=== PATIENT | female | born 1960 | race Two or more races ===

== ENCOUNTER 2022-02-12 23:49 | Emergency (ER) | payer OTHER ==
[~2022-02-12] VITALS: Ht 154.9 cm; Wt 55.3 kg
[2022-02-13] MEDS ORDERED: ONDANSETRON HCL/PF 4 MG/2 ML VIAL IVP ONE (00:30)
[2022-02-13] MEDS ORDERED: DICYCLOMINE HCL INJ 20 MG/2 ML AMPUL IM ONE ×2 (00:30→00:46)
[2022-02-13] MEDS ORDERED: IV NS 0.9% 500 ML BAG IV ONE (00:30)
--- NOTE | 2022-02-13 00:34 | NUR ---
BIBPA FOR C/O 2 EPISODES OF VOMITING AT 1600 +NASUEA AND ABD CRAMPING. PT ENDORSES HUNGER DUE TO BEING UNABLE TO EAT. PT AWAKE AND ALERT X3 BREATHING EVEN AND UNLABORED. PLACED ON MONITOR AND V/S WNL.
[2022-02-13] MEDS ORDERED: ONDANSETRON HCL/PF 4 MG/2 ML VIAL ONE (00:46)
--- NOTE | 2022-02-13 00:56 | NUR ---
22G IV ESTABLISHED AT RF. SALINE LOCKED.
--- NOTE | 2022-02-13 01:02 | NUR ---
URINE COLLECTED AND SENT TO LAB
--- NOTE | 2022-02-13 01:32 | NUR ---
LAB AT BEDSIDE
[2022-02-13 02:11] LABS: BILIRUBIN,URINE NEGATIVE (NEGATIVE); COLOR,URINE YELLOW (YELLOW); LEUKOCYTE ESTERASE ,URINE MODERATE (NEGATIVE); NITRITE, URINE NEGATIVE (NEGATIVE); PROTEIN,URINE 30 mg/dl (NEGATIVE); UGLUCOSE >=1000 mg/dL (NEGATIVE); UROBILINOGEN,URINE 0.2 EU/dL (0.2)
[2022-02-13 02:11] LABS: BASOPHILS # (AUTO) 0.1 K/uL (0.0-0.2); BASOPHILS % (AUTO) 0.5 % (0.0-2.0); EOSINOPHILS % (AUTO) 3.6 % (0.0-6.0); HEMATOCRIT 29 % (33-45); HEMOGLOBIN 9.2 g/dL (11.5-14.8); LYMPHOCYTES % (AUTO) 18.5 % (20.0-44.0); MEAN CORPUSCULAR HGB CONC 32 g/dl (31.0-36.0); MEAN CORPUSCULAR VOLUME 86 fL (82-100); MONOCYTES % (AUTO) 9.3 % (2.0-12.0); NEUTROPHILS # (AUTO) 7.2 K/uL (1.8-8.9); NEUTROPHILS % (AUTO) 68.1 % (43.0-81.0); PLATELET COUNT (AUTO) 569 K/uL (150-450); RED BLOOD CELL COUNT(AUTO) 3.34 MIL/uL (4.0-5.2); WHITE BLOOD COUNT (AUTO) 10.6 K/uL (4.3-11.0)
[2022-02-13 02:18] LABS: CALCIUM, SERUM 8.3 mg/dL (8.5-10.1); CARBON DIOXIDE 26 mmol/L (21-32); CHLORIDE 104 mmol/L (98-107); CREATININE 0.7 mg/dL (0.6-1.3); GLUCOSE 78 mg/dL (74-106); POTASSIUM 3.5 mmol/L (3.5-5.1); SODIUM SERUM 138 mmol/L (136-145); UREA NITROGEN, BLOOD 17 mg/dL (7-18)
[2022-02-13 02:24] LABS: ALANINE AMINOTRANSFERASE 8 U/L (12-78); ALKALINE PHOSPHATASE 119 U/L (46-116); ASPARTATE AMINOTRANSFERASE 13 U/L (15-37); BILIRUBIN,DIRECT 0.1 mg/dL (0.0-0.2); BILIRUBIN,TOTAL 0.2 mg/dL (0.2-1.0); LIPASE 34 U/L (73-393); TOTAL PROTEIN, SERUM 6.4 g/dL (6.4-8.2)
[2022-02-13] MEDS ORDERED: CEFTRIAXONE 1GM BAG (ER ONLY) 1 GM/50 ML PIGGYBACK IV ONE (02:30)
--- NOTE | 2022-02-13 03:20 | NUR ---
[facility] PAGED
[2022-02-13] MEDS ORDERED: CEFTRIAXONE 1 G VIAL ONE (03:22)
--- NOTE | 2022-02-13 04:00 | NUR ---
LAB AT BEDSIDE FOR REPEAT TROPONIN
--- NOTE | 2022-02-13 04:44 | NUR ---
CALLED LAB FOR TROPONIN REDRAW
--- NOTE | 2022-02-13 04:49 | NUR ---
FOLLOWED UP WITH [facility]
--- NOTE | 2022-02-13 05:00 | NUR ---
[facility] AT BEDSIDE FOR REDRAW
--- NOTE | 2022-02-13 05:52 | NUR ---
PT SLEEPING COMOFRTABLY. REMAINS ON MONITOR AND V/S WNL.
[2022-02-13 07:12] LABS: BACTERIA,URINE Many /HPF (None Seen); WBC,URINE 51-80 /HPF (0-3)
[2022-02-13 07:13] LABS: SQUAMOUS EPITHELIAL CELL,UR Few /HPF (None Seen)
--- NOTE | 2022-02-13 09:00 | NUR ---
PT AWAKE AND VERBALLY RESPONSIVE, NOT IN ACUTE DISTRESS. NO COMPLAINT OF PAIN AT THIS TIME.
[2022-02-13] MEDS ORDERED: SUCR1ORA15 PO (09:15)
[2022-02-13] MEDS ORDERED: FERR325T23 PO (09:15)
[2022-02-13] MEDS ORDERED: PANT40TA49 PO (09:15)
[2022-02-13] MEDS ORDERED: CRAN3875 PO (09:15)
[2022-02-13] MEDS ORDERED: DAPA10TA PO (09:15)
[2022-02-13] MEDS ORDERED: REPA1TAB7 PO (09:15)
[2022-02-13] MEDS ORDERED: OXYC-121 PO (09:15)
[2022-02-13] MEDS ORDERED: CRAN425C6 PO (09:15)
[2022-02-13] MEDS ORDERED: LINA5TAB PO (09:15)
[2022-02-13] MEDS ORDERED: CARV6.25 PO (09:15)
[2022-02-13] MEDS ORDERED: ASCO500C17 PO (09:15)
[2022-02-13] MEDS ORDERED: DOCU-141 PO (09:15)
[2022-02-13] MEDS ORDERED: ZINC220T4 PO (09:15)
[2022-02-13] MEDS ORDERED: INSU100I4 SQ (09:15)
[2022-02-13] MEDS ORDERED: AMIN887L PO (09:15)
[2022-02-13] MEDS ORDERED: ENOX40DI SQ (09:15)
[2022-02-13] MEDS ORDERED: METF-442 PO (09:15)
[2022-02-13] MEDS ORDERED: LACT1CAP25 PO (09:15)
--- NOTE | 2022-02-13 14:12 | NUR ---
CALLED DR. CARO [phone] DENISE.
[2022-02-13 14:59] VITALS: BP 128/64
--- NOTE | 2022-02-13 15:00 | NUR ---
SPOKE W/ CLAUDINE ABBOTT ARCHIVAL RECORDS CLERK; WILL CALL BACK FOR BED.
--- NOTE | 2022-02-13 15:51 | NUR ---
[facility] ROOM 2250 NUMBER FOR REPORT: [id number] ACCEPTING MD: DR. GORDO MORENO (SIGNAL WORKER) [phone] FOR ETA
--- NOTE | 2022-02-13 16:27 | NUR ---
[facility] CALLED FOR TRANSPORT ETA 90 MINS PER KHARI.
--- NOTE | 2022-02-13 16:33 | NUR ---
PT REPORT GIVEN TO REGINALDO VICTORIA AT [facility]
--- NOTE | 2022-02-13 18:03 | NUR ---
cake knocker AT BEDSIDE TO PICKUP PT.
--- NOTE | 2022-02-13 18:13 | NUR ---
Patient discharged to [facility] via gurney, accompanied by 2 hand developer; bedside endorsement given. Written and verbal after care instructions given.
== END 2022-02-13 18:14 | disposition short-term general hospital (02) ==
LOC: ER 23:57
DX: R10.30 Lower abdominal pain, unspecified (principal); N39.0 Urinary tract infection, site not specified; K83.8 Other specified diseases of biliary tract; Z20.822 Contact with and (suspected) exposure to COVID-19; R74.8 Abnormal levels of other serum enzymes; R10.13 Epigastric pain
CPT/HCPCS: 99285; 74181; 74176; 96365; 71045; 96361; 96375; 87426; 93005; 85025; 80048; 87086; 83690; 80076; 81001; 36415; 84484 ×2; 85730; 96372; J0696; J2405; J7040; J0500; C9803

== ENCOUNTER 2025-01-09 11:08 | Inpatient (IN) | payer MEDICARE, OTHER ==
[~2025-01-09] VITALS: Ht 154.9 cm; Wt 36.7 kg
[~2025-01-09 11:08] MED LIST: AMIN887L PO; ASCO500C17 PO; CARV6.25 PO; CRAN3875 PO; CRAN425C6 PO; DAPA10TA PO; DOCU-141 PO; ENOX40DI SQ; FERR325T23 PO; INSU100I4 SQ; LACT1CAP25 PO; LINA5TAB PO; METF-442 PO; OXYC-121 PO; PANT40TA49 PO; REPA1TAB7 PO; SUCR1ORA15 PO; ZINC220T4 PO
[2025-01-09] MEDS: IV NS 0.9% 1,000 ML BAG IV ONE ×2 (12:06→14:01)
[2025-01-09 12:19] LABS: FRACTIONATED INSPIRED OXYGEN-V 21.0 %; SITE, VBG VBG - N/A; VBG BASE EXCESS -7.4 mmol/L (-2.0-3.0); VBG HCO3 17.1 mmol/L (22.0-29.0); VBG MetHb 0.2 % (0.5-1.5); VBG OXYGEN SATURATION 65.1 % (60.0-85.0); VBG PCO2 32.2 mmHg (38.0-54.0); VBG PH 7.343 (7.320-7.430); VBG PO2 32.8 mmHg (23.0-48.0); VBG TOTAL HEMOGLOBIN 14.4 G/dL (12.0-16.0)
[2025-01-09 12:29] LABS: CALCIUM, SERUM 10.5 mg/dL (8.5-10.1); CREATININE 1.5 mg/dL (0.6-1.3); SODIUM SERUM 140 mmol/L (136-145); UREA NITROGEN, BLOOD 43 mg/dL (7-18)
[2025-01-09 12:30] LABS: SERUM AMMONIA 27 umol/L (11-32)
[2025-01-09 12:35] LABS: ASPARTATE AMINOTRANSFERASE 14 U/L (15-37); TOTAL PROTEIN, SERUM 8.5 g/dL (6.4-8.2)
[2025-01-09 12:41] LABS: PLATELET COUNT (AUTO) 335 K/uL (150-450); RED BLOOD CELL COUNT(AUTO) 4.56 MIL/uL (4.0-5.2); RED CELL DISTRIBUTION WIDTH 14.3 % (11.5-15.0); WHITE BLOOD COUNT (AUTO) 18.8 K/uL (4.3-11.0)
[2025-01-09 12:53] LABS: INR 0.97 (0.91-1.10)
[2025-01-09 12:57] LABS: APPEARANCE,URINE SLIGHTLY CLOUDY (CLEAR); BLOOD, URINE TRACE-INTA Ery/uL (NEGATIVE); LEUKOCYTE ESTERASE ,URINE 1+ (NEGATIVE); NITRITE, URINE NEGATIVE (NEGATIVE); UGLUCOSE 3+ mg/dL (NEGATIVE)
[2025-01-09 13:09] LABS: ADD URINE CULTURE YES; SQUAMOUS EPITHELIAL CELL,UR Moderate /HPF (None Seen)
[2025-01-09] MEDS ORDERED: INSULIN REGULAR, HUMAN 100 UNIT/ML 10 ML VIAL ONE (13:46)
[2025-01-09] MEDS ORDERED: ASPIRIN 300 MG/SUPP.RECT RC ONE (13:46)
[2025-01-09] MEDS: INSULIN REGULAR, HUMAN 100 UNIT/ML 10 ML VIAL SQ ONE (13:51)
[2025-01-09] MEDS ORDERED: ONDANSETRON HCL/PF 4 MG/2 ML VIAL IVP PRN (14:00)
[2025-01-09] MEDS ORDERED: DOSING PER PHARMACY-VANCOMYCIN IV XX PRN (14:00)
[2025-01-09] MEDS ORDERED: DEXTROSE 50%-WATER 50 ML DISP.SYRIN IV PRN (14:00)
[2025-01-09] MEDS ORDERED: DOSING PER PHARMACY-ZOSYN IV 1 EA EA XX PRN (14:00)
[2025-01-09] MEDS: ASPIRIN 300 MG/SUPP.RECT RC SCH (14:02)
[2025-01-09] MEDS: PIPERACILLIN /TAZOBACTAM 3.375 G in IV D5W 50 ML IV ONE (14:02)
[2025-01-09] MEDS: VANCOMYCIN 1 GM in IV D5W 250 ML IV ONE (14:19)
[2025-01-09 15:20] LABS: AMPHETAMINE, URINE NEGATIVE (NEGATIVE); BARBITURATE, URINE NEGATIVE (NEGATIVE); BENZODIAZEPINE, URINE NEGATIVE (NEGATIVE); CANNABINOID, URINE NEGATIVE (NEGATIVE); COCCAINE, URINE NEGATIVE (NEGATIVE); OPIATE, URINE NEGATIVE (NEGATIVE)
[2025-01-09] MEDS: ENOXAPARIN SODIUM 40 MG/0.4 ML DISP.SYRIN SQ SCH (15:29)
[2025-01-09 15:35] LABS: CALCIUM, SERUM 9.2 mg/dL (8.5-10.1); CREATININE 1.3 mg/dL (0.6-1.3); SODIUM SERUM 143.0 mmol/L (136-145); UREA NITROGEN, BLOOD 38.0 mg/dL (7-18)
[2025-01-09 15:41] LABS: ASPARTATE AMINOTRANSFERASE 12.0 U/L (15-37); TOTAL PROTEIN, SERUM 7.4 g/dL (6.4-8.2)
[2025-01-09 16:00] VITALS: BP 143/70; TEMP 98.6; O2SAT 98
[2025-01-09] MEDS: BLOOD SUGAR DIAGNOSTIC 1 EACH STRIP IN SCH (17:11)
[2025-01-09] MEDS: INSULIN REGULAR, HUMAN 100 UNIT/ML 3 ML VIAL SQ PRN (17:12)
[2025-01-09] MEDS: IV NS 0.9% 1,000 ML IV PRN (18:02)
[2025-01-09] MEDS: ZOSYN IVPB 2.25 G in IV D5W 50ml IV SCH (19:55)
[2025-01-09 20:00] VITALS: BP 140/83; TEMP 100; O2SAT 99
[2025-01-10] VITALS: BP 152/72; TEMP 99; O2SAT 100
[2025-01-10 04:00] VITALS: BP 149/64; TEMP 99.5; O2SAT 94
[2025-01-10] MEDS: ACETAMINOPHEN 650 MG/SUPP.RECT RC PRN (05:55)
[2025-01-10 08:00] VITALS: BP 128/64; TEMP 98.8; O2SAT 99
[2025-01-10 08:00] LABS: PLATELET COUNT (AUTO) 316 K/uL (150-450); RED BLOOD CELL COUNT(AUTO) 4.44 MIL/uL (4.0-5.2); RED CELL DISTRIBUTION WIDTH 14.5 % (11.5-15.0); WHITE BLOOD COUNT (AUTO) 16.1 K/uL (4.3-11.0)
[2025-01-10 10:27] LABS: LDL 60.0 mg/dL (0-99)
[2025-01-10] MEDS ORDERED: ASPIRIN 325 MG TABLET NG SCH (10:30)
[2025-01-10 10:35] LABS: SODIUM SERUM 145.0 mmol/L (136-145)
[2025-01-10 10:36] LABS: CALCIUM, SERUM 9.5 mg/dL (8.5-10.1); CREATININE 1.1 mg/dL (0.6-1.3); PHOSPHORUS 2.6 mg/dL (2.5-4.9); UREA NITROGEN, BLOOD 25.0 mg/dL (7-18)
[2025-01-10] MEDS ORDERED: IOHEXOL-350 100 ML VIAL IV ONE (10:59)
[2025-01-10] MEDS ORDERED: IV NS 0.9% 250 ML IV ONE (10:59)
[2025-01-10] MEDS ORDERED: INSU100V39 SQ (11:49)
[2025-01-10] MEDS: ASPIRIN 81 MG TAB.CHEW PO SCH (11:49)
[2025-01-10] MEDS: CLOPIDOGREL BISULFATE 75 MG TABLET PO SCH (11:49)
[2025-01-10 12:00] VITALS: BP 146/78; TEMP 97.9; O2SAT 97
[2025-01-10] MEDS: VANCOMYCIN 750 MG in IV D5W 250 ML IV SCH (14:01)
[2025-01-10] MEDS: GLUCERNA 1.2 1,000 ML BOTTLE NG PRN (14:02)
[2025-01-10 15:49] LABS: CREATININE, URINE 41.8 MG/DL (30.0-125.0); URINE SODIUM, RANDOM 78.0 mmol/l (40-220); URINE TOTAL PROTEIN 137.4 mg/dL (0-11.9)
[2025-01-10 16:00] VITALS: BP 186/76; TEMP 98.1; O2SAT 96
[2025-01-10 20:00] VITALS: BP 151/74; TEMP 98.2; O2SAT 98
[2025-01-10] MEDS: Z GUARD REMEDY 4 OZ OINT TP SCH (20:15)
[2025-01-10] MEDS: ATORVASTATIN 40 MG TABLET PO SCH (21:23)
[2025-01-11] VITALS: BP 150/56; TEMP 98.6; O2SAT 98
[2025-01-11 04:00] VITALS: BP 144/67; TEMP 97.9; O2SAT 96
[2025-01-11 07:00] LABS: PLATELET COUNT (AUTO) 286 K/uL (150-450); RED BLOOD CELL COUNT(AUTO) 4.05 MIL/uL (4.0-5.2); RED CELL DISTRIBUTION WIDTH 14.8 % (11.5-15.0); WHITE BLOOD COUNT (AUTO) 23.6 K/uL (4.3-11.0)
[2025-01-11 07:23] LABS: CREATINE KINASE, TOTAL 47.0 U/L (26-192)
[2025-01-11 07:27] LABS: ASPARTATE AMINOTRANSFERASE 16.0 U/L (15-37); CALCIUM, SERUM 8.7 mg/dL (8.5-10.1); CREATININE 0.6 mg/dL (0.6-1.3); NT-PRO BNP 1694.0 pg/mL (0-125); PHOSPHORUS 2.3 mg/dL (2.5-4.9); TOTAL PROTEIN, SERUM 6.5 g/dL (6.4-8.2); UREA NITROGEN, BLOOD 18.0 mg/dL (7-18)
[2025-01-11 07:57] LABS: SODIUM SERUM 145.0 mmol/L (136-145)
[2025-01-11 08:00] VITALS: BP 171/66; TEMP 98.8; O2SAT 95
[2025-01-11] MEDS ORDERED: DEXTROSE 50%-WATER 50 ML DISP.SYRIN IV PRN (08:30)
[2025-01-11 10:07] LABS: FOLIC ACID 10.2 ng/mL (>3.0)
[2025-01-11 12:00] VITALS: BP 145/50; TEMP 98.3; O2SAT 94
[2025-01-11] MEDS: BLOOD SUGAR DIAGNOSTIC 1 EACH STRIP IN SCH (12:51)
[2025-01-11] MEDS: INSULIN REGULAR, HUMAN 100 UNIT/ML 3 ML VIAL SQ PRN (12:53)
[2025-01-11] MEDS: ZOSYN IVPB 3.375 G in IV D5W 50ml IV SCH (13:16)
[2025-01-11 16:00] VITALS: BP 181/70; TEMP 98.4; O2SAT 96
[2025-01-11] MEDS: NEUTRA PHOS 1 POWD.PACKET NG ONE (16:38)
[2025-01-11 20:00] VITALS: BP 159/63; TEMP 102; O2SAT 96
[2025-01-11] MEDS: ATORVASTATIN 40 MG TABLET PO SCH (22:11)
[2025-01-12] VITALS (7 sets, daily range): BP systolic 126–161; BP diastolic 58–85; TEMP 97.9–100.2; O2SAT 93–97
[2025-01-12 06:43] LABS: PLATELET COUNT (AUTO) 262 K/uL (150-450); RED BLOOD CELL COUNT(AUTO) 4.04 MIL/uL (4.0-5.2); RED CELL DISTRIBUTION WIDTH 14.4 % (11.5-15.0); WHITE BLOOD COUNT (AUTO) 25.2 K/uL (4.3-11.0)
[2025-01-12 07:11] LABS: CALCIUM, SERUM 8.5 mg/dL (8.5-10.1); CREATININE 0.7 mg/dL (0.6-1.3); PHOSPHORUS 2.3 mg/dL (2.5-4.9); SODIUM SERUM 149.0 mmol/L (136-145); UREA NITROGEN, BLOOD 11.0 mg/dL (7-18)
[2025-01-12 08:07] LABS: PTH, INTACT 10 pg/mL (15-65)
[2025-01-12] MEDS: POTASSIUM CL. PREMIX PERIPHER. 50 ML IV SCH (09:10)
[2025-01-12] MEDS: POTASSIUM CHLORIDE 20 MEQ POWDER PACKET GT ONE (09:12)
[2025-01-12] MEDS: MAGNESIUM OXIDE 400 MG TABLET NG ONE (11:55)
[2025-01-12] MEDS: NEUTRA PHOS 1 POWD.PACKET GT ONE (17:02)
[2025-01-13] VITALS: BP 134/54; TEMP 98.1; O2SAT 95
[2025-01-13] MEDS ORDERED: VANCOMYCIN 500 MG in IV D5W 100ml IV SCH (02:00)
[2025-01-13 04:28] VITALS: BP 134/54; TEMP 97.5; O2SAT 95
[2025-01-13 07:31] LABS: PLATELET COUNT (AUTO) 242 K/uL (150-450); RED BLOOD CELL COUNT(AUTO) 4.34 MIL/uL (4.0-5.2); RED CELL DISTRIBUTION WIDTH 14.9 % (11.5-15.0); WHITE BLOOD COUNT (AUTO) 24.5 K/uL (4.3-11.0)
[2025-01-13 07:51] LABS: ASPARTATE AMINOTRANSFERASE 18.0 U/L (15-37); CALCIUM, SERUM 8.1 mg/dL (8.5-10.1); CREATININE 0.6 mg/dL (0.6-1.3); PHOSPHORUS 3.1 mg/dL (2.5-4.9); SODIUM SERUM 146.0 mmol/L (136-145); TOTAL PROTEIN, SERUM 6.3 g/dL (6.4-8.2); UREA NITROGEN, BLOOD 11.0 mg/dL (7-18)
[2025-01-13 08:00] VITALS: BP 158/59; TEMP 99; O2SAT 95
[2025-01-13] MEDS: POTASSIUM CL. PREMIX PERIPHER. 50 ML IV SCH (09:21)
[2025-01-13 11:07] LABS: METHYLMALONIC ACID 124.0 nmol/L (0-378)
[2025-01-13 12:00] VITALS: BP 151/66; TEMP 99; O2SAT 96
[2025-01-13 16:00] VITALS: BP 157/73; TEMP 99; O2SAT 96
[2025-01-13 20:00] VITALS: BP 167/71; TEMP 98.4; O2SAT 94
[2025-01-14] VITALS: BP 144/60; TEMP 98.5; O2SAT 96
[2025-01-14 04:00] VITALS: BP 132/53; TEMP 98.4; O2SAT 94
[2025-01-14 08:05] VITALS: BP 145/63; TEMP 97.5; O2SAT 96
[2025-01-14 11:21] LABS: CALCIUM, SERUM 8.4 mg/dL (8.5-10.1); CREATININE 0.8 mg/dL (0.6-1.3); PLATELET COUNT (AUTO) 245 K/uL (150-450); RED BLOOD CELL COUNT(AUTO) 3.79 MIL/uL (4.0-5.2); RED CELL DISTRIBUTION WIDTH 14.6 % (11.5-15.0); SODIUM SERUM 145.0 mmol/L (136-145); UREA NITROGEN, BLOOD 15.0 mg/dL (7-18); WHITE BLOOD COUNT (AUTO) 13.8 K/uL (4.3-11.0)
[2025-01-14 12:05] VITALS: BP 143/61; TEMP 97.9; O2SAT 95
[2025-01-14 16:05] VITALS: BP 179/76; TEMP 97.6; O2SAT 97
[2025-01-14 20:00] VITALS: BP 131/54; TEMP 101.1; O2SAT 97
[2025-01-14 20:14] LABS: VITAMIN B1 THIAMINE,WB 122.1 nmol/L (66.5-200.0)
[2025-01-15 01:00] VITALS: BP 142/79; TEMP 98.2; O2SAT 98
[2025-01-15 04:00] VITALS: BP 142/66; TEMP 97.2; O2SAT 99
[2025-01-15 07:30] LABS: PLATELET COUNT (AUTO) 284 K/uL (150-450); RED BLOOD CELL COUNT(AUTO) 4.24 MIL/uL (4.0-5.2); RED CELL DISTRIBUTION WIDTH 14.6 % (11.5-15.0); WHITE BLOOD COUNT (AUTO) 16.5 K/uL (4.3-11.0)
[2025-01-15 07:36] LABS: CALCIUM, SERUM 8.5 mg/dL (8.5-10.1); CREATININE 0.8 mg/dL (0.6-1.3); PHOSPHORUS 3.3 mg/dL (2.5-4.9); SODIUM SERUM 146.0 mmol/L (136-145); UREA NITROGEN, BLOOD 16.0 mg/dL (7-18)
[2025-01-15 08:00] VITALS: BP 152/77; TEMP 98.1; O2SAT 96
[2025-01-15] MEDS: POTASSIUM CL. PREMIX PERIPHER. 50 ML IV SCH (09:20)
[2025-01-15 12:00] VITALS: BP 169/56; TEMP 98.4; O2SAT 96
[2025-01-15 16:00] VITALS: BP 146/58; TEMP 99.8; O2SAT 94
[2025-01-15 20:00] VITALS: BP 136/54; TEMP 102; O2SAT 94
[2025-01-16] VITALS (8 sets, daily range): BP systolic 125–169; BP diastolic 55–68; TEMP 97.9–99.7; O2SAT 97–100
[2025-01-16] MEDS: GLUCERNA 1.2 1,000 ML BOTTLE NG PRN (05:44)
[2025-01-16 07:45] LABS: PLATELET COUNT (AUTO) 305 K/uL (150-450); RED BLOOD CELL COUNT(AUTO) 4.08 MIL/uL (4.0-5.2); RED CELL DISTRIBUTION WIDTH 14.4 % (11.5-15.0); WHITE BLOOD COUNT (AUTO) 16.8 K/uL (4.3-11.0)
[2025-01-16 08:17] LABS: CALCIUM, SERUM 8.6 mg/dL (8.5-10.1); CREATININE 0.9 mg/dL (0.6-1.3); PHOSPHORUS 3.3 mg/dL (2.5-4.9); SODIUM SERUM 144.0 mmol/L (136-145); UREA NITROGEN, BLOOD 18.0 mg/dL (7-18)
[2025-01-17] VITALS: BP 133/57; TEMP 98.2; O2SAT 98
[2025-01-17 04:00] VITALS: BP 132/52; TEMP 98.1; O2SAT 99
[2025-01-17 08:00] VITALS: BP 146/60; TEMP 97.8; O2SAT 96
[2025-01-17 08:04] LABS: PLATELET COUNT (AUTO) 341 K/uL (150-450); RED BLOOD CELL COUNT(AUTO) 3.43 MIL/uL (4.0-5.2); RED CELL DISTRIBUTION WIDTH 14.5 % (11.5-15.0); WHITE BLOOD COUNT (AUTO) 16.8 K/uL (4.3-11.0)
[2025-01-17 08:14] LABS: CALCIUM, SERUM 8.7 mg/dL (8.5-10.1); CREATININE 0.8 mg/dL (0.6-1.3); PHOSPHORUS 2.8 mg/dL (2.5-4.9); SODIUM SERUM 145.0 mmol/L (136-145); UREA NITROGEN, BLOOD 17.0 mg/dL (7-18)
[2025-01-17] MEDS: HEPARIN SODIUM, PORCINE 5000 UNITS/1 ML VIAL SQ SCH (08:24)
[2025-01-17] MEDS: POTASSIUM CHLORIDE 20 MEQ POWDER PACKET NG SCH (10:00)
[2025-01-17] MEDS: THERAHONEY GEL 1.5 OZ TUBE TP SCH (11:59)
[2025-01-17 12:00] VITALS: BP 166/67; TEMP 98.1; O2SAT 97
[2025-01-17 16:00] VITALS: BP 110/67; TEMP 98.4; O2SAT 95
[2025-01-17 20:00] VITALS: BP 126/55; TEMP 98.6; O2SAT 97
[2025-01-18] VITALS: BP 131/59; TEMP 98.2; O2SAT 95
[2025-01-18 04:00] VITALS: BP 134/68; TEMP 98.1; O2SAT 100
[2025-01-18 07:07] LABS: *SPE A/G RATIO 0.6 (0.7-1.7); *SPE ALBUMIN 2.2 g/dL (2.9-4.4); *SPE ALPHA-1-GLOBULIN 0.5 g/dL (0.0-0.4); *SPE ALPHA-2-GLOBULIN 1.0 g/dL (0.4-1.0); *SPE BETA GLOBULIN 1.2 g/dL (0.7-1.3); *SPE GLOBULIN, TOTAL 3.5 g/dL (2.2-3.9); *SPE M-SPIKE Not Observed g/dL (Not Observed); *SPE PROTEIN TOTAL 5.7 g/dL (6.0-8.5); *SPEGAMMA GLOBULIN 0.9 g/dL (0.4-1.8)
[2025-01-18 08:03] VITALS: BP 133/73; TEMP 98.6; O2SAT 96
[2025-01-18 08:16] LABS: PLATELET COUNT (AUTO) 392 K/uL (150-450); RED BLOOD CELL COUNT(AUTO) 3.56 MIL/uL (4.0-5.2); RED CELL DISTRIBUTION WIDTH 14.5 % (11.5-15.0); WHITE BLOOD COUNT (AUTO) 15.8 K/uL (4.3-11.0)
[2025-01-18 08:21] LABS: CALCIUM, SERUM 8.4 mg/dL (8.5-10.1); CREATININE 0.9 mg/dL (0.6-1.3); SODIUM SERUM 141.0 mmol/L (136-145); UREA NITROGEN, BLOOD 19.0 mg/dL (7-18)
[2025-01-18 12:10] VITALS: BP 123/62; TEMP 97.7; O2SAT 98
[2025-01-18 13:20] LABS: INR 0.99 (0.91-1.10)
[2025-01-18 16:15] VITALS: BP 129/60; TEMP 98.1; O2SAT 99
[2025-01-18 20:00] VITALS: BP 180/76; TEMP 98.1; O2SAT 98
[2025-01-18] MEDS: INSULIN GLARGINE, 100 UNIT/ML CARTRIDGE SQ SCH (22:31)
[2025-01-19] VITALS: BP 105/63; TEMP 98.4; O2SAT 98
[2025-01-19 04:00] VITALS: BP 131/57; TEMP 99.3; O2SAT 98
[2025-01-19 06:54] LABS: PLATELET COUNT (AUTO) 409 K/uL (150-450); RED BLOOD CELL COUNT(AUTO) 4.04 MIL/uL (4.0-5.2); RED CELL DISTRIBUTION WIDTH 14.8 % (11.5-15.0); WHITE BLOOD COUNT (AUTO) 13.2 K/uL (4.3-11.0)
[2025-01-19 07:19] LABS: CALCIUM, SERUM 8.8 mg/dL (8.5-10.1); CREATININE 0.9 mg/dL (0.6-1.3); PHOSPHORUS 3.9 mg/dL (2.5-4.9); SODIUM SERUM 138.0 mmol/L (136-145); UREA NITROGEN, BLOOD 14.0 mg/dL (7-18)
[2025-01-19 08:10] VITALS: BP 119/54; TEMP 98.1; O2SAT 99
[2025-01-19 12:00] VITALS: BP 125/68; TEMP 98.4; O2SAT 99
[2025-01-19 16:04] VITALS: BP 116/71; TEMP 98.2; O2SAT 96
[2025-01-19 20:00] VITALS: BP 116/49; TEMP 98.1; O2SAT 94
[2025-01-20] VITALS (8 sets, daily range): BP systolic 94–170; BP diastolic 51–89; TEMP 97.7–98.5; O2SAT 94–99
[2025-01-20 07:37] LABS: PLATELET COUNT (AUTO) 443 K/uL (150-450); RED BLOOD CELL COUNT(AUTO) 3.81 MIL/uL (4.0-5.2); RED CELL DISTRIBUTION WIDTH 14.4 % (11.5-15.0); WHITE BLOOD COUNT (AUTO) 12.6 K/uL (4.3-11.0)
[2025-01-20 08:19] LABS: CALCIUM, SERUM 8.4 mg/dL (8.5-10.1); CREATININE 0.7 mg/dL (0.6-1.3); PHOSPHORUS 3.4 mg/dL (2.5-4.9); SODIUM SERUM 138.0 mmol/L (136-145); UREA NITROGEN, BLOOD 14.0 mg/dL (7-18)
[2025-01-20] MEDS: IV D5/0.45 NACL 1,000 ML IV PRN (23:11)
[2025-01-21] VITALS (9 sets, daily range): BP systolic 129–158; BP diastolic 53–73; TEMP 97.5–99.1; O2SAT 94–99
[2025-01-21 07:24] LABS: PLATELET COUNT (AUTO) 470 K/uL (150-450); RED BLOOD CELL COUNT(AUTO) 3.46 MIL/uL (4.0-5.2); RED CELL DISTRIBUTION WIDTH 14.3 % (11.5-15.0); WHITE BLOOD COUNT (AUTO) 9.9 K/uL (4.3-11.0)
[2025-01-21 08:14] LABS: CALCIUM, SERUM 8.5 mg/dL (8.5-10.1); CREATININE 0.8 mg/dL (0.6-1.3); PHOSPHORUS 2.9 mg/dL (2.5-4.9); SODIUM SERUM 137.0 mmol/L (136-145); UREA NITROGEN, BLOOD 12.0 mg/dL (7-18)
[2025-01-21] MEDS: GLUCERNA 1.2 1,000 ML BOTTLE NG STA (12:17)
[2025-01-21] MEDS: ATORVASTATIN 40 MG TABLET NG SCH (21:39)
[2025-01-22] VITALS: BP 139/62; TEMP 97.5; O2SAT 97
[2025-01-22 04:00] VITALS: BP 128/62; TEMP 97.8; O2SAT 98
[2025-01-22 06:36] LABS: PLATELET COUNT (AUTO) 478 K/uL (150-450); RED BLOOD CELL COUNT(AUTO) 3.50 MIL/uL (4.0-5.2); RED CELL DISTRIBUTION WIDTH 14.0 % (11.5-15.0); WHITE BLOOD COUNT (AUTO) 9.9 K/uL (4.3-11.0)
[2025-01-22 08:00] VITALS: BP 116/89; TEMP 97.9; O2SAT 100
[2025-01-22] MEDS: CLOPIDOGREL BISULFATE 75 MG TABLET PO SCH (10:25)
[2025-01-22] MEDS: ASPIRIN 81 MG TAB.CHEW NG SCH (10:25)
[2025-01-22] MEDS ORDERED: GLUCERNA 1.2 1,000 ML BOTTLE NG PRN (10:30)
[2025-01-22 12:00] VITALS: BP 111/79; TEMP 97.9; O2SAT 99
[2025-01-22] MEDS ORDERED: INSULIN GLARGINE, 100 UNIT/ML CARTRIDGE SQ SCH (22:00)
== END 2025-01-22 15:45 | DRG 871 ==
LOC: ER 11:10 → TELE1 13:28 → TELE-TD 14:35 → TELE1 01-11 09:27
PROVIDERS: ADMIT Nurse Practitioner Acute Care
PROC: 02HV33Z Insertion of Infusion Device into Superior Vena Cava, Percutaneous Approach (ICD-10-PCS; principal; 2025-01-09)
PROC: B548ZZA Ultrasonography of Superior Vena Cava, Guidance (ICD-10-PCS; 2025-01-09)
PROC: 0DH63UZ Insertion of Feeding Device into Stomach, Percutaneous Approach (ICD-10-PCS; 2025-01-20)
DX: A41.9 Sepsis, unspecified organism (principal); G93.41 Metabolic encephalopathy; L89.154 Pressure ulcer of sacral region, stage 4; L89.214 Pressure ulcer of right hip, stage 4; N17.0 Acute kidney failure with tubular necrosis; J69.0 Pneumonitis due to inhalation of food and vomit; I21.A1 Myocardial infarction type 2; I63.511 Cerebral infarction due to unspecified occlusion or stenosis of right middle cerebral artery; E44.0 Moderate protein-calorie malnutrition; E87.20 Acidosis, unspecified; N39.0 Urinary tract infection, site not specified; Z68.1 Body mass index [BMI] 19.9 or less, adult; G81.94 Hemiplegia, unspecified affecting left nondominant side; R47.01 Aphasia; E86.0 Dehydration; D64.9 Anemia, unspecified; E11.65 Type 2 diabetes mellitus with hyperglycemia; E88.09 Other disorders of plasma-protein metabolism, not elsewhere classified; K29.70 Gastritis, unspecified, without bleeding; M89.8X9 Other specified disorders of bone, unspecified site; R13.10 Dysphagia, unspecified; R62.7 Adult failure to thrive; Z79.4 Long term (current) use of insulin; I25.2 Old myocardial infarction; B96.89 Other specified bacterial agents as the cause of diseases classified elsewhere; E83.9 Disorder of mineral metabolism, unspecified; L98.8 Other specified disorders of the skin and subcutaneous tissue; Z79.02 Long term (current) use of antithrombotics/antiplatelets; I12.9 Hypertensive chronic kidney disease with stage 1 through stage 4 chronic kidney disease, or unspecified chronic kidney disease; N18.9 Chronic kidney disease, unspecified; R29.703 NIHSS score 3
CPT/HCPCS: 36415; 36600; 43246; 70450-TC; 70496-TC; 70498-TC; 70551-TC; 71045-TC; 74230-TC; 80048-TC; 80053-TC; 80061-TC; 80076-TC; 80202-TC; 81001; 82010-TC; 82140-TC; 82550-TC; 82570-TC; 82607-TC; 82803-TC; 82962-TC; 83605-TC; 83690-TC; 83735-TC; 83880; 83921; 83970; 84100-TC; 84155; 84165; 84300-TC; 84425; 84443-TC; 84484-TC; 85025-TC; 85610-TC; 85652-TC; 85730-TC; 87040-TC; 87086-TC; 92526; 92611; 93307-TC; 97110-TC; 97112-TC; 97530-TC; 97535-TC; A4223; A6213; G0378; J0690; J1644; J1650; J1815; J2543; J2704; J3373; J3374; J3480; J3490; J7030; J7040; J7050; J7060; Q9967